=== PATIENT | male | born 1975 | race Caucasian/White ===

== ENCOUNTER → 2023-06-11 06:40 | Day surgery (SDC) | payer OTHER, SELFPAY | LOC: GI 06:40 | PROVIDERS: ATTENDING PHYSICIAN Internal Medicine Gastroenterology | DX: Z12.11 Encounter for screening for malignant neoplasm of colon (principal); Z86.010 Personal history of colon polyps; K64.8 Other hemorrhoids; D12.2 Benign neoplasm of ascending colon | CPT/HCPCS: 45380; 88305 ==

== ENCOUNTER 2023-09-11 08:42 | Emergency (ER) | payer OTHER, SELFPAY ==
[2023-09-11 08:45] VITALS: BP 176/93
[2023-09-11 09:03] VITALS: BMI 26.1
--- NOTE | 2023-09-11 09:08 | ED.GENMED ---
History of Present Illness
General
Chief Complaint: Chest Pain
Source: patient
Exam Limitations: none
Time Seen by Provider: 09/11/23 08:53
Nursing documentation reviewed up to this point in time: agreed with
History of Present Illness
History of Present Illness:
47 y/o M with h/o HTN
ran out of valsartan and needs to sampler pickup rx
here with jona kelly that he is describing as an ache, also like being aware of his heart beat which doesn't esem fast or irregular, just stronger
since yesterday afternoon
he has had a lot of work stress
drank some wine las tnight and had a cigar but usually doesn't drink during the week
otherwise nonsmoker
no cocaine
no fhx of premature CAD in primary relatives
never has been seen by cards
no lightheadendess, nausea, vomiting, confusion, weakness, syncope, leg swelling, recent long travel, h/o previous DVT or PE.
Past History
Past History
ED Past Medical History: HTN
ED Past Surgical History: None
Social History
Tobacco: Non-smoker
Alcohol: Occasional
Drug: None
Personal:
Living: with family
Employment: Employed
Review of Systems
Review of Systems
Allergies reviewed?: Yes
All Other Systems: Not applicable
Phy Exam
Physical Exam
Physical Exam:
GENERAL: Alert , in no apparent distress
EYE: pupils equal and reactive
NECK: Supple
ENT: o/p clr, mmm.
CARDIAC: Regular rate and rhythm .no obvious murmur
LUNGS: Clear breath sounds bilaterally, no acute respiratory distress, no wheezes/rales/rhonchi
ABDOMEN: Soft, without focal tenderness, no r/g, no cvat, normal bowel sounds
NEUROLOGICAL: Alert and oriented, no focal neuro deficits
SKIN: Warm and dry, skin intact.
MUSCULOSKELETAL: No edema, well perfused. neg tk's sign
PSYCH: Normal and appropriate interaction.
Scores
Heart Score for Chest Pain Patients
STEMI patient?: No
History: Slightly or Non-Suspicious
ECG: Normal
Age: >45 - <65 years
Risk Factors: 1 or 2 Risk Factors
Troponin: </= Normal Limit
Heart Score for Chest Pain Patients: 2
Heart Score Risk: 2.5% MACE over next 6 weeks
Course
Orders/Labs/Results
Orders:
Orders
09/11/23 08:43
ECG [Electrocardiogram (*1)] Urgent
Reason for Study: Chest Pain
EKG- Treatment ONCE
09/11/23 09:07
CR Chest - 2 Views Urgent
Comment:
Reason For Exam: chest pain
09/11/23 09:11
Complete Blood Count/With Diff Urgent
Comprehensive Metabolic Panel Urgent
Lipase Urgent
Magnesium Urgent
TSH Reflex To Free T4 Urgent
Troponin I Urgent
09/11/23 09:20
Valsartan [Diovan] 80 mg PO NOW STA
Abnormal Lab Results
09/11/23
09:11
WBC 4.2 L 10^3/uL
(4.8-10.8)
MCH 32.1 H pg
(27.0-31.0)
Monocytes % 10.0 H %
(1.7-9.3)
09/11/23 09:11
09/11/23 09:11
Vital Signs
Initial and Last Documented VS:
Initial Vital Signs
Temp Pulse Resp BP Pulse Ox
98 F 66 18 176/93 97
09/11/23 08:45 09/11/23 08:45 09/11/23 08:45 09/11/23 08:45 09/11/23 08:45
Last Documented Vital Signs
Temp Pulse Resp BP Pulse Ox
97.8 F 59 22 145/85 97
09/11/23 10:50 09/11/23 10:50 09/11/23 10:50 09/11/23 10:50 09/11/23 10:50
MDM/Problems Addressed
Differential Diagnosis Includes:
NSTEMI, ACS, PALPITATIONS, ANXIETY
MDM/Problems Addressed:
47 Y/O M iwth ho htn, off meds, noncompliance
here with palptiation feeling 'stronger' heart beat than usual, not fast or irregular, no sob or lightheadedness but mild anxiety and discomfort
well appearing
initially hypertensive, improved, and treated also with his med that he has been withou
ekg nonischemi normal
trop neg (cp started yesterday)
cxr clear
lip[ase normal
pt counseled on diet modificatoin, limiting alcohol and compliance with bpmeds
f/u pcp
this is unlikely to be ACS given length of symptomsand normal ekg an dtrop
low heart score
*Critical Care Note
Total Time (30-74mins, 75-104mins- exclusive of procedures): Not Applicable
ED Attending Note
-
Portions of this chart may have been created with voice recognition software.� Occasional wrong word or��sound alike� substitutions may have occurred due to the inherent limitations of voice recognition software.
Discharge Plan
Departure
Patient Disposition: Home (Routine Discharge)
Date of Disposition: 09/11/23
Time of Disposition: 10:32
Patient with high blood pressure during this ER visit?: Yes
Condition: Fair
Covid-19: Not Applicable
Discharge Problem:
Palpitations, Chest pain, Hypertension
Instructions: Chest Pain PCP Follow Up, BLOOD PRESSURE
Prescriptions:
No Action
valsartan 80 mg Tablet
80 mg PO DAILY
Referrals:
Ben Good MD [Family Provider] - Follow up in 2-3 days
Activity Restrictions/Additional Instructions:
WE ARE NOT SURE THE CAUSE OF YOUR CHES TPAIN
YOUR EKG, CARDIAC MARKERS WERE NORMAL
YOU DO INCIDENTALLY HAVE SLIGHT COMPRESSION OF YOUR THORACIC SPINE VERTEBRAE SUGGESTING ARTHRITIS OR SOME OLD INJURY, WHICH CAN CAUSE BACK PAIN
UNLIKELY TO BE CAUSING YOUR SYMPTOMS
COULD BE FROM STRESS
BUT YOUR BLOOD PRESSURE NEEDS BETTER CONTROL, MAKE SURE TO TAKE YOUR VALSARTAN DAILY
RETURN FOR: WORSENING CHEST PAIN, SHORTNESS OF BREATH, PASSING OUT OR ANY CONCERNS.
OTHERWISE SEE YOUR DOCTOR ERALY NEXT WEEK FOR FOLLOW UP
Interventions
Interventions:
*Risk Screen - Suicide Last Done: 09/11/23 08:45
*General Assessment Last Done: 09/11/23 08:45
*Neglect/Abuse Screening Last Done: 09/11/23 08:45
ED- Fall Risk Assessment Last Done: 09/11/23 09:40
*ED COVID-19 Vaccine History Last Done: 09/11/23 09:05
*Nursing Disposition Last Done: 09/11/23 10:50
ED- Cardiac Assessment Last Done: 09/11/23 09:40
Discharge Date and Time
Discharge Date/Time: 09/11/23 10:52
Print Language: CHINESE
[2023-09-11 09:10] VITALS: BP 158/82
[2023-09-11 09:24] LABS: % Basophils 0.7 % (0-2); % Eosinophils 3.1 % (0-6); % Immature Granulocytes 0.2 % (0-0.5); % Lymphocytes 34.9 % (20.5-51.1); % Neutrophils 51.1 % (42.2-75.2); Absolute Eosinophils 0.1 10^3/uL (0-0.7); Absolute Lymphocytes 1.5 10^3/uL (1.2-3.4); Absolute Monocytes 0.4 10^3/uL (0.1-0.6); Absolute Neutrophils 2.2 10^3/uL (1.4-6.5); Hematocrit 42.6 % (39.0-52.0); Hemoglobin 15.4 g/dL (13.0-18.0); Mean Corp Hgb Conc. 36.2 g/dL (33.0-37.0); Mean Corpuscular Hgb 32.1 pg (27.0-31.0); Mean Corpuscular Volume 88.8 fL (80.0-94.0); Mean Platelet Volume 9.8 fL (7.4-10.4); Nucleated Red Blood Cells % 0 % (-); Platelet Count 217 10^3/uL (130-400); Red Cell Dist. Width 11.8 % (11.5-14.5); White Blood Cell Count 4.2 10^3/uL (4.8-10.8)
[2023-09-11] MEDS: DIOVAN 80 MG PO (09:35)
[2023-09-11 09:40] LABS: ALT (SGPT) 30 U/L (0-50); AST (SGOT) 31 U/L (17-59); Alkaline Phosphatase 85 U/L (38-126); Blood Urea Nitrogen 14 mg/dl (9-20); Calcium 9.7 mg/dl (8.4-10.2); Carbon Dioxide 28 mmol/L (22-30); Chloride 104 mmol/L (98-107); Estimated Creatinine Clearance > 125 ml/min; Glucose 99 mg/dl (70-99); Lipase 55 U/L (23-300); Magnesium 1.8 mg/dl (1.6-2.3); Potassium 4.3 mmol/L (3.5-5.1); Sodium 140 mmol/L (135-145); Total Bilirubin 0.4 mg/dl (0.2-1.3); Total Protein 7.3 g/dl (6.3-8.2); eGFR > 60.00
[2023-09-11 09:51] LABS: Troponin I < 0.012 ng/ml
[2023-09-11 10:00] VITALS: BP 145/85
[2023-09-11 10:50] VITALS: BP 145/85
[2023-09-11 11:20] LABS: TSH Reflex To Free T4 2.08 uIU/ml (0.47-4.68)
== END 2023-09-11 10:52 | disposition home or self-care (01) ==
LOC: EMR 08:42
PROVIDERS: Physician Assistant; EMERGENCY PHYSICIAN Student in an Organized Health Care Education/Training Program; FAMILY PHYSICIAN Family Medicine
DX: R07.89 Other chest pain (principal); R00.2 Palpitations; I10 Essential (primary) hypertension; Z91.148 Patient's other noncompliance with medication regimen for other reason
CPT/HCPCS: 99283; 71046; 80053; 83690; 83735; 84443; 84484; 85025; 93005

== ENCOUNTER → 2023-09-29 09:03 | Outpatient (REF) | payer OTHER, SELFPAY | LOC: RCS 09:03 | PROVIDERS: ATTENDING PHYSICIAN Family Medicine | DX: R07.9 Chest pain, unspecified (principal) | CPT/HCPCS: 93017 ==

== ENCOUNTER → 2023-10-03 07:15 | Outpatient (REF) | payer OTHER, SELFPAY | LOC: HWRCS 07:15 | PROVIDERS: ATTENDING PHYSICIAN Family Medicine | DX: R07.9 Chest pain, unspecified (principal) | CPT/HCPCS: 93306 ==

== ENCOUNTER → 2024-10-29 07:09 | Outpatient (REF) | payer OTHER, SELFPAY | LOC: RCS 07:09 | PROVIDERS: ATTENDING PHYSICIAN Internal Medicine Cardiovascular Disease; FAMILY PHYSICIAN Family Medicine | DX: I10 Essential (primary) hypertension (principal) | CPT/HCPCS: 93306 ==